=== PATIENT | male | born 2000 | race Caucasian/White ===

== ENCOUNTER 2020-03-26 22:20 | Emergency (ER) | payer OTHER ==
[~2020-03-26] VITALS: Ht 180.3 cm; Wt 73.2 kg
[2020-03-27 01:30] VITALS: BP 129/96
== END 2020-03-27 01:30 | disposition home or self-care (01) ==
LOC: ED 22:20
DX: S00.83XA Contusion of other part of head, initial encounter (principal); R68.84 Jaw pain; Y04.8XXA Assault by other bodily force, initial encounter; Y93.89 Activity, other specified; Y92.89 Other specified places as the place of occurrence of the external cause; Y99.8 Other external cause status